=== PATIENT | male | born 1945 | race Caucasian/White ===

== ENCOUNTER 2019-05-05 20:46 | Observation (INO) | payer MEDICARE ==
[~2019-05-05] VITALS: Ht 180.3 cm; Wt 120.5 kg
[~2019-05-05 20:46] MED LIST: ASPIRIN81 MG PO; BAYER CHEWABLE81 MG PO; CARAFATE1 G/10 ML PO; CRESTOR20 MG PO; DIOVAN HCT 320/1 TA2 PO; FARXIGA10 MG PO; FERROUS SULFAT325 MG PO; FISH OIL 1,0001 CA1 PO; FISH OIL 500 MG1 CAP PO; FUROSEMIDE10 MG/M1 IV; GLUCOPHAGE500 MG PO; GUAIFENESI100 MG/5 M NG; K-DUR20 MEQ PO; LEXAPRO10 MG PO; LOVENOX30 MG/0.3 SC; METOPROLOL TAR100 M1 PO; MILK THISTLE140 MG PO; MULTIPLE VITAMI1 TA1 PO; NIASPAN500 MG PO; NITRO-DUR0.2 MG TD; NITROSTAT0.4 MG SL; NORVASC5 MG PO; PEPCID20 MG PO; PLAVIX75 MG PO; PRAVACHOL40 MG PO; PREVACID30 MG PO; PROTONIX40 MG PO; TOPROL XL100 MG PO; XOPENEX 0.0.63 MG/3 UPD; XOPENEX 1.1.25 MG/3 UPD
[2019-05-05 21:16] LABS: BASOPHILS 0.3 % (0-2); EOSINOPHILS 0.4 % (0-7); HEMATOCRIT 41.7 % (42.0-54.0); HEMOGLOBIN 14.4 g/dL (13.5-17.5); IMMATURE GRANULOCYTES 0.4 % (0-5); LYMPHOCYTES 15.5 % (15-50); MCHC 34.5 g/dL (31.0-37.0); MCV 89.9 fL (80.0-100.0); MEAN PLATELET VOLUME 9.5 fL (7.4-10.4); MONOCYTES 5.2 % (2-11); NEUTROPHILS 78.2 % (40-80); PLATELET COUNT 194 10x3/uL (130-400); RBC 4.64 10x6/uL (4.20-6.10); RDW 12.9 % (11.5-14.5); WBC 13.8 10x3/uL (4.8-10.8)
[2019-05-05 21:32] LABS: CALC OSMOLALITY 278 mosm/kg (275-300); CARBON DIOXIDE 23.1 mmol/L (21.0-32.0); CHLORIDE - SERUM 100 mmol/L (98-107); GLUCOSE 177 mg/dL (74-106); POTASSIUM - SERUM 3.3 mmol/L (3.5-5.1); SODIUM 136 mmol/L (136-145); UREA NITROGEN 20 mg/dL (7-18); eGFR NON AFRICAN AMERICAN 78 mL/min (90-120)
[2019-05-05 21:38] LABS: ALBUMIN 3.4 g/dL (3.4-5.0); ALKALINE PHOSPHATASE 71 U/L (30-120); ALT (SGPT) 36 U/L (10-68); BILIRUBIN - TOTAL 0.46 mg/dL (0.2-1.3); PROTEIN - SERUM 7.7 g/dL (6.4-8.2)
[2019-05-05 23:08] LABS: GLUCOSE NEGATIVE (NEGATIVE); KETONE SMALL mg/dL (NEGATIVE); NITRITE NEGATIVE (NEGATIVE)
[2019-05-05 23:09] LABS: BILIRUBIN NEGATIVE (NEGATIVE); UROBILINOGEN NORMAL (NORMAL)
--- NOTE | 2019-05-05 23:42 | NUR ---
PT RETURNED FROM CT AT THIS TIME. PER [place] CT PT IV INFILTRATED. PT HAS RED SWOLLEN AREA NOTED TO RIGHT WRIST. IV DC/ CATH INTACT DRESSING APPLIED. WILL ATTEMPT IV RESITE.UNABLE TO PERFORM CT.
--- NOTE | 2019-05-05 23:42 | NUR ---
ICE APPLIED TO RIGTH WRIST. WRIST ELEVATED.
--- NOTE | 2019-05-06 | NUR ---
PT ICE REMOVED FROM RIGHT WRIST.
--- NOTE | 2019-05-06 01:00 | NUR ---
ICE APPLIED TO RIGHT WRIST. EXTREMITY ELEVATED.
--- NOTE | 2019-05-06 04:00 | NUR ---
PT ARRIVED TO THE FLOOR. ALERT AND ORIENTED. NO SIGNS OF DISTRESS. BREATHING EVEN AND UNLABORED. IV SITE RT FA DRESSING CLEAN DRY AND INTACT. NO SIGNS OF INFECTION OR INFULTRATION. SKIN CLEAN DRY AND INTACT. LUNG SOUNDS CLEAR. BOWEL SOUNDS ACTIVE. ABD DISTENDED. TENDERNESS TO PALPATION. WILL CONTINUE PLAN OF CARE. CALL LIGHT IN REACH. BED LOWERED AND LOCKED. BED RAILS UPX2.
[2019-05-06] MEDS ORDERED: FISH OIL 1,0001 CA1 PO (04:11)
[2019-05-06] MEDS ORDERED: BUMETANIDE0.5 MG PO (04:12)
[2019-05-06 04:42] VITALS: BP 162/85; BMI 37.0
[2019-05-06 07:31] LABS: BASOPHILS 0.2 % (0-2); EOSINOPHILS 0.3 % (0-7); HEMATOCRIT 39.1 % (42.0-54.0); HEMOGLOBIN 13.6 g/dL (13.5-17.5); IMMATURE GRANULOCYTES 0.3 % (0-5); LYMPHOCYTES 16.9 % (15-50); MCH 31.1 pg (26.0-34.0); MCHC 34.8 g/dL (31.0-37.0); MCV 89.3 fL (80.0-100.0); MEAN PLATELET VOLUME 9.6 fL (7.4-10.4); MONOCYTES 8.4 % (2-11); NEUTROPHILS 73.9 % (40-80); PLATELET COUNT 169 10x3/uL (130-400); RBC 4.38 10x6/uL (4.20-6.10); WBC 13.1 10x3/uL (4.8-10.8)
[2019-05-06 07:41] LABS: INR 0.99 (0.85-1.17); PROTIME 13.1 SECONDS (11.6-15.0)
--- NOTE | 2019-05-06 08:00 | NUR ---
ALERT AND ORIENTED X3. IVF INFUSING TO RT. F/A W/O ANY S/S OF INFECTION/INFILTRATION WITH CYLINDER DIE MACHINE HELPER MS AT PRESCRIBED RATE. ABDOMEN DISTENDED WITH TENDERNESS NOTED TO UMBILICAL AREA ON PALPATION WITH BOWEL SOUNDS NOTED X4. DENIES ANY PAIN AT THIS TIME.ENCOURAGED TO USE CALL LIGHT FOR ASSSIT.
[2019-05-06 08:15] LABS: ALBUMIN 3.2 g/dL (3.4-5.0); ALKALINE PHOSPHATASE 71 U/L (30-120); ALT (SGPT) 37 U/L (10-68); BILIRUBIN - TOTAL 0.61 mg/dL (0.2-1.3); CALC OSMOLALITY 279 mosm/kg (275-300); CALCIUM 8.1 mg/dL (8.5-10.1); CHLORIDE - SERUM 103 mmol/L (98-107); GLUCOSE 141 mg/dL (74-106); MAGNESIUM - SERUM 1.9 mg/dL (1.8-2.4); PHOSPHOROUS 3.1 mg/dL (2.5-4.9); PROTEIN - SERUM 7.1 g/dL (6.4-8.2); SODIUM 138 mmol/L (136-145); UREA NITROGEN 18 mg/dL (7-18); eGFR NON AFRICAN AMERICAN 78 mL/min (90-120)
[2019-05-06 08:22] LABS: POTASSIUM - SERUM 4.4 mmol/L (3.5-5.1)
[2019-05-06 08:57] VITALS: BP 116/56
[2019-05-06 10:58] LABS: BILIRUBIN NEGATIVE (NEGATIVE); GLUCOSE NEGATIVE (NEGATIVE); KETONE SMALL mg/dL (NEGATIVE); NITRITE NEGATIVE (NEGATIVE); SPECIFIC GRAVITY 1.015 (1.005-1.020); UROBILINOGEN NORMAL (NORMAL)
[2019-05-06 10:59] LABS: BACTERIA FEW /hpf (NEGATIVE); EPITHELIAL CELLS RARE /hpf (0-5); RED CELLS - URINE RARE /hpf (0-5); WHITE CELLS - URINE NSEEN /hpf (NEGATIVE)
[2019-05-06 12:48] VITALS: BP 138/74
[2019-05-06 12:58] VITALS: Ht 180.3 cm; Wt 120.5 kg
[2019-05-06 20:00] VITALS: BP 175/90
[2019-05-07] VITALS: BP 131/76
--- NOTE | 2019-05-07 02:19 | NUR ---
PT RESTING IN BED. EYES CLOSED. NO SIGNS OF DISTRESS. BREATHING EVEN AND UNLABORED. IV SITE RT FA DRESSING CLEAN DRY AND INTACT. NO SIGNS OF INFECITON OR INFULTRATION. LUNG SOUNDS CLEAR. BOWEL SOUNDS ACTIVE. ABD DISTENDED. TENDER TO PALPATION. NO LOWER LEG SWELLING PRESENT. WILL CONTINUE PLAN OF CARE. CALL LIGHT IN REACH. BED LOWERED AND LOCKED. BED RAILS UPX2.
[2019-05-07 04:00] VITALS: BP 118/64
--- NOTE | 2019-05-07 05:23 | NUR ---
I have reviewed this patient and I concur with the Shift Assessment completed by the Licensed Practical Nurse today this shift.
[2019-05-07 08:08] VITALS: BP 116/62
--- NOTE | 2019-05-07 09:00 | NUR ---
ALERT AND ORIENTED X4. ABDOMEN DISTENDED WITH BOWEL SOUNDS NOTED X4. DENIES ANY PAIN OR DISCOMFORT AT THIS TIME. UP AMBULATING IN HALLWAY 1000FT W/O ASSSIT. TOLERATING DIET WELL AND STATES HAD A NORMAL BOWEL MOVEMENT YESTERDAY. IV TO RT. F/A W/O ANY S/S OF INFECTION/INFILTRATION.
[2019-05-07] MEDS ORDERED: MIRALAX17 GM PO (12:27)
[2019-05-07 12:43] VITALS: BP 148/70
--- NOTE | 2019-05-07 13:33 | NUR ---
IV DISCONTINUED AND VERBALIZED UNDERSTANDING OF DISCHARGE INSTRUCTIONS. STABLE AT TIME OF DEPARTURE.
== END 2019-05-07 13:36 | disposition home or self-care (01) ==
LOC: D.ER 20:46 → D.MS 05-06 02:49 → OBSVTIME 05-06 02:49 → D.MS 05-07 13:36
PROVIDERS: Emergency Medicine; ADMIT Internal Medicine Nephrology; ATTEND Internal Medicine Nephrology
DX: K42.9 Umbilical hernia without obstruction or gangrene (principal); E87.6 Hypokalemia; I25.10 Atherosclerotic heart disease of native coronary artery without angina pectoris; E66.9 Obesity, unspecified; Z68.37 Body mass index [BMI] 37.0-37.9, adult; E11.9 Type 2 diabetes mellitus without complications; I10 Essential (primary) hypertension

== ENCOUNTER 2020-07-19 11:43 | Observation (INO) | payer MEDICARE ==
[~2020-07-19] VITALS: Ht 180.3 cm; Wt 129.5 kg
--- NOTE | ~2020-07-19 | HEMODYNAMI ---
PATIENT:FAMILIA HYDE MEDICAL RECORD: [id number] : 49 LOCATION:[facility] ADMISSION DATE: 07/19/20 Generatedon:116:52 Patient name: FAMILIA HYDE Patient #: [id number] SSN: [id number] : 1945 Date of study: 07/19/2020 Page: Of Hemodynamic Procedure Report Patient Data Patient Demographics Procedure consent was obtained First Name: FAMILIA Gender: Male Last Name: BARRETT : 1945 [facility] Initial: C Age: 75 year(s) Patient #: [id number] Race: SSN: [id number] Additional ID: [id number] Contact details Address: [address] State: [place] City: [place] Zip code: [address] Past Medical History Allergies: No known allergies Admission Admission Data Admission Date: 07/19/2020 Admission Time: 11:43 Arrival Date: 07/19/2020 Arrival Time: 0:00 Admit Source: Other Insurance Payor: Medicare [facility] #: [id number] Height (in.): 71 BSA: 2.34 (m2) Height (cm.): 180.34 BMI: 35.56 (kg/m2) Weight (lbs.): 255 Weight (kg.): 115.67 Lab Results Lab Result Date: 07/19/2020 Lab Result Time: 0:00 Biochemistry Name Units Result Min Max BUN mg/dl 29 --(----)-* 7 18 Creatinine mg/dl 1.4 --(----)*- 0.6 1.3 eGFR ml/min 53 *-(----)-- 90 120 NONAFRICAN CBC Name Units Result Min Max Hematocrit % 41 -*(----)-- 42 54 Hemoglobin g/dl 13.6 --(*---)-- 13.5 17.5 Procedure Procedure Types Cath Procedure Diagnostic Procedure PPM/ICD Permanent Pacer Lead Repos. Sedation Charges Moderate Sedation 10-24 minutes Procedure Description Procedure Date Procedure Date: 07/19/2020 Procedure Start Time: 16:22 Procedure Staff Name Function Douglas Byrd MD Performing Physician Leo Vasquez RN Nurse Bonnie Hernandez RT Monitor Lorena Noble RT Scrub Procedure Data Cath Procedure Fluoroscopy Diagnostic fluoroscopy Total fluoroscopy Time: 1.3 time: 1.3 min min Diagnostic fluoroscopy Total fluoroscopy dose: dose: 112.13 mGy 112.13 mGy Estimated blood loss: 5 ml Procedure Complications No complications Procedure Medications Medication Administration Route Dosage Oxygen etCO2 Nasal cannula 4 l/min Lidocaine 1% added to field 20 Ancef Irrigation Topical 1 g (1gm/500ml NS) 0.9% NaCl I.V. Ancef (1Gm/50ml NS) I.V.P.B 1 g Versed I.V. 1 mg Fentanyl I.V. 50 mcg Versed I.V. 1 mg Fentanyl I.V. 50 mcg Versed I.V. 0.5 mg Fentanyl I.V. 25 mcg Hemodynamics Rest BSA: 2.34 (m2) HGB: 13.6 (g/dl) O2 Consumption: Estimated: 231.28 (ml/min) O2 Co nsumption indexed: Estimated:98.84 (ml/min/m) Heart Rate: 27 (bpm) Snapshots Pre Cath Intra NCS Post Cath Vital Signs Time Heart Resp SPO2 NIBP (mmHg) Rhythm Pain Sedation Rate (ipm) (%) Status Level (bpm) 15:45:03 56 11 91 149/93(125) A-Fib (Missing) 10(A) 15:50:14 57 19 91 158/78(93) A-Fib (Missing) 10(A) 15:54:32 54 19 91 141/92(109) A-Fib (Missing) 10(A) 15:58:52 52 20 91 126/66(107) A-Fib (Missing) 10(A) 16:03:00 42 21 90 128/88(108) A-Fib (Missing) 10(A) 16:07:06 50 15 91 136/92(106) A-Fib (Missing) 10(A) 16:11:14 41 20 93 131/80(103) A-Fib (Missing) 10(A) 16:15:30 47 23 91 145/65(119) A-Fib (Missing) 10(A) 16:20:31 51 22 91 152/79(120) A-Fib (Missing) 10(A) 16:24:53 42 19 90 147/71(131) A-Fib (Missing) 10(A) 16:29:11 45 21 90 151/79(110) A-Fib (Missing) 9(A) 16:33:29 88 24 90 137/84(119) A-Fib (Missing) 9(A) 16:37:39 62 19 93 145/89(119) A-Fib (Missing) 9(A) 16:41:53 73 21 91 149/87(122) Paced (Missing) 10(A) 16:46:09 91 22 95 153/88(108) Paced (Missing) 10(A) 16:50:09 No Cuff Paced (Missing) 10(A) Medications Time Medication Route Dose Verified Delivered Reason Notes Effectiv eness by by 15:44:11 Oxygen etCO2 4 Douglas Buffie used for [facility]al l[facility] 15:44:27 Lidocaine added 20ml Douglas Douglas for local 1% to vial [facility] anesthetic field x2 MD ARAUJO 15:44:39 Ancef Topical 1 g Douglas Douglas used for Irrigation [facility] procedure (1gm/500ml MD ARAUJO NS) 15:44:49 0.9% NaCl I.V. kvo Douglas Buffie Per ml/hr Carson Vasquez RN physician 15:48:14 Ancef I.V.P.B 1 g Douglas Buffie used for (1Gm/50ml Carson Vasquez call center coordinator NS) 16:21:23 Versed I.V. 1 mg Douglas Buffie for Carson Vasquez RN sedation 16:21:34 Fentanyl I.V. 50 Douglas Buffie for mcg Carson Vasquez RN sedation 16:24:00 Versed I.V. 1 mg Douglas Buffie for Carson Vasquez RN sedation 16:24:04 Fentanyl I.V. 50 Douglas Buffie for mcg Carson Vasquez RN sedation 16:31:34 Versed I.V. 0.5 Douglas Buffie for mg Carson Vasquez RN sedation 16:31:39 Fentanyl I.V. 25 Douglas Buffie for mcg Carson Vasquez RN sedation Procedure Log Time Note 15:32:16 Leo Vasquez RN sent for patient. Start room use. 15:32:30 Informed consent obtained and on chart 15:32:52 Admit Source: Other 15:32:58 Patient Height : 71 inches 15:32:58 Patient Weight : 255 lbs 15:33:14 ACC Patient presents with Stable Angina CCS Anginal Class 2--Slight limitation of ordinary activity. 15:33:19 Procedure Status PPM/ Gen Change/ Lead Revision/ Temp. 15:33:21 Time tracking: Regular hours (M-F 7:00 - 5:00) 15:33:26 Plan of Care:Hemodynamics will remain stable., Cardiac rhythm will remain stable., Comfort level will be maintained., Respiratory function will remain adequate., Patient/ family verbilizes understanding of procedure., Procedure tolerated without complication., Recovers from procedure without complications.. 15:33:35 H&P Date Dictated: 07/12/2020 Within 30 days and on chart.. 15:33:36 Pre-procedure instructions explained to patient. 15:33:37 Pre-op teaching completed and patient verbalized understanding. 15:33:39 Family in waiting room. 15:33:42 Patient NPO since Midnight. 15:33:47 Patient allergic to No known allergies 15:33:52 Alarms reviewed by R. N. 15:33:53 Sharps counted by scrub and verified by R.N. 15:33:55 Lab results completed and on chart. 15:33:59 Stress Test: no; N/A ? 15:36:37 Patient received from Pre/Post Procedure Room to [facility] 3 Alert and oriented. Tansferred to table in Supine position. 15:36:43 Warm blankets applied, and jose maria hugger turned on for patient comfort. 15:36:43 Correct patient and procedure confirmed by team. 15:36:44 ECG and BP/O2 sat monitors applied to patient. 15:36:50 Is the patient allergic to Iodine/contrast media? No. 15:36:52 Was the patient premedicated? No 15:36:53 Is patient on blood thinner?No 15:37:01 ----Pre-sedation anethsthesia assessment.---- 15:37:04 Previous problem with sedation/anesthesia? No ? 15:37:05 Snore? Yes 15:37:07 Sleep apnea? Unknown 15:37:08 Deviated septum? No 15:37:16 Opens mouth fully? Yes 15:37:17 Sticks out tongue? Yes 15:37:19 Airway obstruction? No ? 15:37:21 Dentures? No ? 15:37:43 Left chest area was prepped with chlora-prep and draped in sterile fashion 15:37:52 Patient pain scale 0/10 ?. 15:37:56 IV patent on arrival in left antecubital with 0.9% NaCl at KVO. 15:38:05 Use device set CLARIBEL PPM 15:38:11 Full Disclosure recording started 15:43:49 Vital chart was started 15:44:11 Oxygen 4 l/min etCO2 Nasal cannula was administered by Leo Vasquez RN; used for procedure; Verbal order read back and verified. 15:44:27 Lidocaine 1% 20ml vial x2 added to field was administered by Douglas Byrd MD; for local anesthetic; Verbal order read back and verified. 15:44:39 Ancef Irrigation (1gm/500ml NS) 1 g Topical was administered by Douglas Byrd MD; used for procedure; Verbal order read back and verified. 15:44:49 0.9% NaCl kvo ml/hr I.V. was administered by Leo Vasquez RN; Per physician; Verbal order read back and verified. 15:47:06 Patient diabetic? No. 15:47:29 Baseline sample Acquired. 15:48:14 Ancef (1Gm/50ml NS) 1 g I.V.P.B was administered by Leo Vasquez RN; used for procedure; Verbal order read back and verified. 15:57:42 Baseline sample Acquired. 15:58:30 [employer] outbound telemarketing representative Aaron Boss present for procedure. 16:20:45 Pre sharps counted by scrub and verified by RN: Sutures: 7; Sponges: 5; Stick needles: 2; Skin needles: 2; Blade: 1; Cautery: 1 16:20:48 Grounding pad site Left thigh. 16:20:52 Grounding pad site free from injury. 16:20:57 Physician arrived 16:20:58 --------ALL STOP TIME OUT------ 16:20:58 Final Timeout: patient, procedure, and site verified with staff and physician. All members of the team are in agreement. 16:21:03 Left chest site verified by team. 16:21:06 Fire Safety Assessment: A--An alcohol-based skin anteseptic being used preoperatively., C--Open oxygen or nitrous oxide is being used., D--An ESU, laser, or fiber-optic light is being used. 16:21:10 Physical assessment completed. ASA score P 2 - A patient with mild systemic disease as per Douglas Byrd MD. 16:21:15 Sedation plan: IV Moderate Sedation Medication:Versed, Fentanyl 16::23 Versed 1 mg I.V. was administered by Leo Vasquez RN; for sedation; Verbal order read back and verified. 16::34 Fentanyl 50 mcg I.V. was administered by Leo Vasquez RN; for sedation; Verbal order read back and verified. 16:22:37 Lidocaine 1% was administered to left subclavicular area by Douglas Byrd MD . 16:24:00 Versed 1 mg I.V. was administered by Leo Vasquez RN; for sedation; Verbal order read back and verified. 16:24:04 Fentanyl 50 mcg I.V. was administered by Leo Vasquez RN; for sedation; Verbal order read back and verified. 16:24:19 Incision made to left subclavicular area. 16:24:21 Generator pocket made/opened. 16:26:00 Ventricular lead repositioned. 16:31:21 2-0 Ticron Multipack ([id number]) opened to sterile field. 16:31:21 3-0 Vicryl Single Pack [id number] opened to sterile field. 16:31:22 5-0 Monocryl PS2 [id number] opened to sterile field. 16:31:22 Cautery Tip Cardroom Hand opened to sterile field. 16:31:23 Cautery Pushbutton Pencil opened to sterile field. 16:31:24 Mepilex Dressing ([id number]) opened to sterile field. 16:31:34 Versed 0.5 mg I.V. was administered by Leo Vasquez RN; for sedation; Verbal order read back and verified. 16::39 Fentanyl 25 mcg I.V. was administered by Leo Vasquez RN; for sedation; Verbal order read back and verified. 16:31:48 Ventricular lead attachment was completed with 2-0 ticron. 16:32:10 PPM Dual was attached to lead(s) and inserted into pocket. 16:34:14 Generator was sutured in place with 2-0 ticron. 16:34:19 Device pocket was irrigated with Ancef. 16:37:49 5-0 Monocryl PS2 [id number] opened to sterile field. 16:38:02 Subcutaneous closure was completed with 3-0 vicryl plus. 16:40:11 Skin closure was completed with 5-0 monocryl. 16:40:16 Lt Chest incision was dressed with Mepilex dressing. 16:40:36 Parameters-- Generator: Mode: DDDR. Lower Rate: 60bpm. Upper Rate: 120bpm. 16:41:08 Procedure ended.(Physican Out) 16:49:20 Fluoroscopy time 01.30 minutes. 16:49:24 Fluoroscopy dose: 112.13 mGy 16:49:24 Flurop Dose total: 112.13 16:49:30 Dose Area Product 1143.71 mGy/cm. 16:49:32 Sharps counted by scrub and verified by R.N. 16:49:34 Insertion/operative site no bleeding no hematoma. 16:49:40 Post procedure rhythm: paced 16:49:44 Estimated blood loss: 5 ml 16:49:46 Post procedure instruction explained to patient.Patient verbalizes understanding. 16:49:47 Patient needs reinforcement of post procedure teaching. 16:50:25 Procedure type changed to Cath procedure, Diagnostic procedure, PPM/ICD, Permanent Pacer Lead Repos., Sedation Charges, Moderate Sedation 10-24 minutes 16:50:26 Procedure and supply charges have been captured, reviewed, submitted and are correct. 16:50:33 Procedure Complication : No complications 16:50:36 Vital chart was stopped 16:50:38 Operative report dictated upon procedure completion. 16:50:39 See physician's report for complete and final results. 16:50:41 Report given to [facility]. 16:50:44 Patient transfered to [facility] with Stretcher. 16:50:53 End room use (Document Last) 16:51:24 End room use (Document Last) 16:51:44 End room use (Document Last) Device Usage Item Name Manufacture Quantity Catalog Hospital Part Current Minimal Lot# / Number Charge Number Stock Stock Serial# Code 2-0 Ticron Ethicon 3 [id number] 5 Multipack ([id number]) 3-0 Vicryl Ethicon 1 [id number] [id number] 5 Single Pack [id number] 5-0 Monocryl Ethicon 2 [id number] 393175 [id number] 5 PS2 Y495G Cautery Tip Microtek 1 [id number] 5 [employer] Cautery Microtek 1 [id number] 5 [employer] Pencil Mepilex Cardinal 1 [id number] 5 [facility] ([id number]) Signature Audit [place] Stage Time Signature Unsigned Intra-Procedure 07/19/2020 Bonnie Hernandez 4:51:24 PM RT(R) Intra-Procedure 07/19/2020 Leo Vasquez RN 4:51:44 PM Intra-Procedure 07/19/2020 Douglas Ruggiero 4:52:03 PM Bhaskar ARAUJO [facility] [address] [place] [address]
--- NOTE | ~2020-07-19 | HEMODYNAMI ---
PATIENT:FAMILIA HYDE MEDICAL RECORD: [id number] : 49 LOCATION:[place] ADMISSION DATE: 07/19/20 Generatedon:115:01 Patient name: FAMILIA HYDE Patient #: [id number] SSN: [id number] : 1945 Date of study: 07/19/2020 Page: Of Hemodynamic Procedure Report Patient Data Patient Demographics Procedure consent was obtained First Name: FAMILIA Gender: Male Last Name: BARRETT : 1945 [facility] Initial: C Age: 75 year(s) Patient #: [id number] Race: SSN: [id number] Additional ID: [id number] Contact details Address: [address] State: [place] City: [place] Zip code: [address] Past Medical History Allergies: No known allergies Admission Admission Data Admission Date: 07/19/2020 Admission Time: 11:43 Arrival Date: 07/19/2020 Arrival Time: 0:00 Admit Source: Other Insurance Payor: Medicare [facility] #: [id number] Height (in.): 71 BSA: 2.34 (m2) Height (cm.): 180.34 BMI: 35.56 (kg/m2) Weight (lbs.): 255 Weight (kg.): 115.67 Lab Results Lab Result Date: 07/19/2020 Lab Result Time: 0:00 Biochemistry Name Units Result Min Max BUN mg/dl 29 --(----)-* 7 18 Creatinine mg/dl 1.4 --(----)*- 0.6 1.3 eGFR ml/min 53 *-(----)-- 90 120 NONAFRICAN CBC Name Units Result Min Max Hematocrit % 41 -*(----)-- 42 54 Hemoglobin g/dl 13.6 --(*---)-- 13.5 17.5 Procedure Procedure Types Cath Procedure Diagnostic Procedure PPM/ICD PPM Dual Implant Sedation Charges Moderate Sedation 40-54 minutes Procedure Description Procedure Date Procedure Date: 07/19/2020 Procedure Start Time: 14:28 Procedure End Time: 15:00 Procedure Staff Name Function Douglas Byrd MD Performing Physician Chuck Gomez MD Assisting physician Lorena Noble RT Monitor Leo Vasquez RN Nurse Jason Ayala RN Nurse Bonnie Hernandez RT Scrub Indication Atrial flutter Procedure Data Cath Procedure Fluoroscopy Diagnostic fluoroscopy Total fluoroscopy Time: 1.4 time: 1.4 min min Diagnostic fluoroscopy Total fluoroscopy dose: 240 dose: 240 mGy mGy Contrast Material Contrast Material Type Amount (ml) Isovue 370 0 Estimated blood loss: 10 ml Procedure Complications No complications Procedure Medications Medication Administration Route Dosage Oxygen etCO2 Nasal cannula 2 l/min Lidocaine 1% added to field 20 Ancef (1Gm/50ml NS) I.V.P.B 1 g Ancef Irrigation Topical 1 g (1gm/500ml NS) 0.9% NaCl I.V. 100 ml/hr Versed I.V. 2 mg Fentanyl I.V. 100 mcg Versed I.V. 1 mg Versed I.V. 1 mg Fentanyl I.V. 100 mcg Versed I.V. 2 mg Fentanyl I.V. 50 mcg Fentanyl I.V. 50 mcg Zofran I.V. 4 mg Hemodynamics Rest BSA: 2.34 (m2) HGB: 13.6 (g/dl) O2 Consumption: Estimated: 256.43 (ml/min) O2 Co nsumption indexed: Estimated:109.59 (ml/min/m) Heart Rate: 55 (bpm) Snapshots Pre Cath Intra NCS Post Cath Vital Signs Time Heart Resp SPO2 etCO2 NIBP (mmHg) Rhythm Pain Sedation Rate (ipm) (%) (mmHg) Status Level (bpm) 14:08:08 54 20 98 25.4 204/98(174) A-Fib 0 (11) 10(A) , No pain 14:12:40 52 20 95 17.2 212/92(167) A-Fib 0 (11) 10(A) , No pain 14:17:07 56 18 95 19.4 196/89(154) A-Fib 0 (11) 10(A) , No pain 14:21:33 51 18 94 26.1 178/88(152) A-Fib 0 (11) 10(A) , No pain 14:25:59 46 24 93 22.4 181/76(138) A-Fib 0 (11) 10(A) , No pain 14:30:19 54 15 94 26.9 186/96(148) A-Fib 0 (11) 10(A) , No pain 14:34:52 56 16 93 24.6 179/91(138) A-Fib 0 (11) 10(A) , No pain 14:39:20 54 18 92 30.6 175/86(134) A-Fib 0 (11) 10(A) , No pain 14:43:42 46 18 90 29.8 170/71(120) A-Fib 0 (11) 10(A) , No pain 14:48:11 45 16 94 29.8 163/79(127) A-Fib 0 (11) 10(A) , No pain 15:01:05 59 16 92 26.1 172/91(147) A-Fib 0 (11) 10(A) , No pain Medications Time Medication Route Dose Verified Delivered Reason Notes Effecti veness by by 14:06:03 Oxygen etCO2 2 Douglas Jason used for Nasal l/min St Bhaskar Ayala passenger barge master cannula MD 14:06:18 Lidocaine added 20ml Confucianism Confucianism for local 1% to vial Claribel Gomez MD anesthetic field x 2 14:06:28 Ancef I.V.P.B 1 g Confucianism Jason used for (1Gm/50ml Claribel Ayala passenger barge master NS) 14:06:35 Ancef Topical 1 g Confucianism Jason used for Irrigation Claribel Ayala passenger barge master (1gm/500ml NS) 14:06:53 0.9% NaCl I.V. 100 Confucianism Jason used for ml/hr Claribel Ayala passenger barge master 14:17:16 Versed I.V. 2 mg Confucianism Jason for Claribel Ayala RN sedation 14:17:23 Fentanyl I.V. 100 Confucianism Jason for mcg Claribel Ayala RN sedation 14:23:49 Versed I.V. 1 mg Confucianism Jason for Claribel Ayala RN sedation 14:26:02 Versed I.V. 1 mg Confucianism Jason for Claribel Ayala RN sedation 14:36:24 Fentanyl I.V. 100 Chuck Gomez for mcg Claribel Ayala RN sedation 14:38:27 Versed I.V. 2 mg Chuck Gomez for Claribel Ayala RN sedation 14:40:50 Fentanyl I.V. 50 Chuck Johnsony for mcg Claribel Ayala RN sedation 14:43:53 Fentanyl I.V. 50 Chuck Gomez for mcg Claribel Ayala RN sedation 14:58:52 Zofran I.V. 4 mg Chuck Gomez for nausea Claribel Ayala RN Procedure Log Time Note 13:52:40 Informed consent obtained and on chart 13:53:24 Leo Vasquez RN sent for patient. Start room use. 13:53:45 Diagnostic Cath Status : Elective 13:54:15 Arrival Date: 07/19/2020 12:00:00 AM 13:54:16 Admit Source: Other 13:54:19 Insurance Payor : Medicare 13:55:14 Patient Height : 71 inches 13:55:18 Patient Weight : 255 lbs 13:56:02 Lab Result : eGFR NONAFRICAN 53 ml/min 13:56:02 Lab Result : BUN 29 mg/dl 13:56:02 Lab Result : Creatinine 1.4 mg/dl 13:56:02 Lab Result : Hemoglobin 13.6 g/dl 13:56:02 Lab Result : Hematocrit 41 % 13:58:05 Indication : Atrial flutter 13:58:16 ACC Patient presents with Stable Angina CCS Anginal Class 2--Slight limitation of ordinary activity. 13:58:20 Procedure Status PPM/ Gen Change/ Lead Revision/ Temp. 13:58:32 Time tracking: Regular hours (M-F 7:00 - 5:00) 13:58:38 Plan of Care:Hemodynamics will remain stable., Cardiac rhythm will remain stable., Comfort level will be maintained., Respiratory function will remain adequate., Patient/ family verbilizes understanding of procedure., Procedure tolerated without complication., Recovers from procedure without complications.. 13:58:47 H&P Date Dictated: 07/12/2020 Within 30 days and on chart.. 13:58:52 Patient received from Pre/Post Procedure Room to [facility] 2 Alert and oriented. Tansferred to table in Supine position. 13:58:54 Warm blankets applied, and jose maria hugger turned on for patient comfort. 13:58:55 Correct patient and procedure confirmed by team. 13:58:55 ECG and BP/O2 sat monitors applied to patient. 13:58:59 Full Disclosure recording started 13:59:02 Patient diabetic? Yes. 13:59:04 If diabetic: On Metformin? Yes 13:59:08 If on Metformin: Last Dose? 07/19/2020 13:59:11 Family in waiting room. 13:59:13 Patient NPO since Midnight. 13:59:20 Patient allergic to No known allergies 13:59:23 Is the patient allergic to Iodine/contrast media? No. 13:59:24 Was the patient premedicated? Yes 13:59:26 Is patient on blood thinner?No 13:59:30 Alarms reviewed by R. N. 13:59:31 Sharps counted by scrub and verified by R.N. 13:59:33 Lab results completed and on chart. 13:59:37 Stress Test: no; N/A ? 14:05:50 Vital chart was started 14:06:03 Oxygen 2 l/min etCO2 Nasal cannula was administered by Jason Ayala RN; used for procedure; Verbal order read back and verified. 14:06:18 Lidocaine 1% 20ml vial x 2 added to field was administered by Chuck Gomez MD; for local anesthetic; Verbal order read back and verified. 14:06:28 Ancef (1Gm/50ml NS) 1 g I.V.P.B was administered by Jason Ayala RN; used for procedure; Verbal order read back and verified. 14:06:35 Ancef Irrigation (1gm/500ml NS) 1 g Topical was administered by Jason Ayala RN; used for procedure; Verbal order read back and verified. 14:06:53 0.9% NaCl 100 ml/hr I.V. was administered by Jason Ayala RN; used for procedure; Verbal order read back and verified. 14:08:13 Baseline sample Acquired. 14:08:25 Rhythm: atrial flutter 14:08:29 ----Pre-sedation anethsthesia assessment.---- 14:08:33 Previous problem with sedation/anesthesia? No ? 14:08:33 Snore? Yes 14:08:35 Sleep apnea? Unknown 14:08:37 Deviated septum? No 14:08:40 Opens mouth fully? Yes 14:08:45 Sticks out tongue? Yes 14:08:47 Airway obstruction? No ? 14:08:50 Dentures? No ? 14:08:57 Patient pain scale 0/10 ?. 14:09:01 IV patent on arrival in left antecubital with 0.9% NaCl at [facility]. 14:09:08 Left chest area was prepped with chlora-prep and draped in sterile fashion 14:10:01 Use device set CLARIBEL PPM 14:10:03 2-0 Ticron Multipack ([id number]) opened to sterile field. 14:10:04 3-0 Vicryl Single Pack [id number] opened to sterile field. 14:10:04 5-0 Monocryl PS2 [id number] opened to sterile field. 14:10:05 Cautery Tip Systems Operator opened to sterile field. 14:10:06 Cautery Pushbutton Pencil opened to sterile field. 14:10:09 Mepilex Dressing ([id number]) opened to sterile field. 14:10:12 Immobilizer Extra Large opened to sterile field. 14:16:25 --------ALL STOP TIME OUT------ 14:16:27 Final Timeout: patient, procedure, and site verified with staff and physician. All members of the team are in agreement. 14:16:30 Left chest site verified by team. 14:16:33 Fire Safety Assessment: A--An alcohol-based skin anteseptic being used preoperatively., C--Open oxygen or nitrous oxide is being used., D--An ESU, laser, or fiber-optic light is being used. 14:16:36 Physical assessment completed. ASA score P 2 - A patient with mild systemic disease as per Douglas Byrd MD. 14:16:38 3a) 45-59 Moderately reduced kidney function. 14:16:40 Maximum allowable contrast dose (3.7 X eGFR X 0.75)157 ml. 14:16:43 Sedation plan: IV Moderate Sedation Medication:Versed, Fentanyl 14:17:16 Versed 2 mg I.V. was administered by Jason Ayala RN; for sedation; Verbal order read back and verified. 14:17:23 Fentanyl 100 mcg I.V. was administered by Jason Ayala RN; for sedation; Verbal order read back and verified. 14:23:49 Versed 1 mg I.V. was administered by Jason Ayala RN; for sedation; Verbal order read back and verified. 14:26:02 Versed 1 mg I.V. was administered by Jason Ayala RN; for sedation; Verbal order read back and verified. 14:28:00 Procedure started. 14:28:14 Medtronic passenger representative SAUNDRA BURDEN present for procedure. 14:28:24 Pre sharps counted by scrub and verified by RN: Sutures: 7; Sponges: 5; Stick needles: 2; Skin needles: 2; Blade: 1; Cautery: 1 14:28:27 Grounding pad site Left thigh. 14:28:28 Grounding pad site free from injury. 14:28:36 Lidocaine 1% was administered to left subclavicular area by Chuck Gomez MD . 14:29:36 Incision made to left subclavicular area. 14:30:18 Medtronic 4074-52 PPM Lead opened to sterile field. 14:30:19 Medtronic 4574-45 PPM Lead opened to sterile field. 14:32:18 Generator pocket made/opened. 14:36:24 Fentanyl 100 mcg I.V. was administered by Jason Ayala RN; for sedation; Verbal order read back and verified. 14:38:17 Left subclavian vein accessed with 7Fr Peel Away Sheath. 14:38:27 Versed 2 mg I.V. was administered by Jason Ayala RN; for sedation; Verbal order read back and verified. 14:38:46 Ventricular lead inserted and advanced. 14:40:50 Fentanyl 50 mcg I.V. was administered by Jason Ayala RN; for sedation; Verbal order read back and verified. 14:43:53 Fentanyl 50 mcg I.V. was administered by Jason Ayala RN; for sedation; Verbal order read back and verified. 14:44:31 Atrial lead inserted and advanced. 14:44:41 Ventricular lead positioned. 14:45:53 Ventricular lead tested. 14:46:51 Atrial lead positioned. 14:47:15 Atrial lead tested. 14:48:22 Peel-a-way sheath was split and removed. 14:48:[address] Generator [id number] opened to sterile field. 14:49:46 Ventricular lead attachment was completed with 2-0 ticron. 14:49:49 Atrial lead attachment was completed with 2-0 ticron. 14:50:36 PPM Dual was attached to lead(s) and inserted into pocket. 14:51:34 Subcutaneous closure was completed with 2-0 ticron. 14:52:23 Generator was sutured in place with 3-0 vicryl. 14:52:29 Device pocket was irrigated with Ancef. 14:52:49 Skin closure was completed with 5-0 monocryl. 14:53:34 Post sharps counted by scrub and verified by RN: Sutures: 2; Sponges: 5; Stick needles: 2; Skin needles: 2; Blade: 1; Cautery: 1 14:57:35 Lt Chest incision was dressed with Mepilex dressing. 14:57:48 Procedure ended.(Physican Out) 14:57:58 Fluoroscopy time 01.40 minutes. 14:58:02 Flurop Dose total: 240 14:58:02 Fluoroscopy dose: 240 mGy 14:58:12 Dose Area Product 95788 mGy/cm. 14:58:16 Contrast amount:Isovue 370 0ml. 14:58:18 Sharps counted by scrub and verified by R.N. 14:58:37 Post-procedure physical assessment completed. ASA score P 2 - A patient with mild systemic disease as per Douglas Byrd MD. 14:58:51 Estimated blood loss: 10 ml 14:58:52 Zofran 4 mg I.V. was administered by Jason Ayala RN; for nausea; Verbal order read back and verified. 14:59:09 Post procedure instruction explained to patient.Patient verbalizes understanding. 14:59:10 Patient needs reinforcement of post procedure teaching. 14:59:44 Procedure type changed to Cath procedure, Diagnostic procedure, PPM/ICD, PPM Dual Implant, Sedation Charges, Moderate Sedation 40-54 minutes 15:00:15 Procedure and supply charges have been captured, reviewed, submitted and are correct. 15:00:19 Procedure Complication : No complications 15:00:23 Operative report dictated upon procedure completion. 15:00:24 See physician's report for complete and final results. 15:00:28 Report given to Pre/Post Procedure Room. 15:00:31 Patient transfered to Pre/Post Procedure Room with Stretcher. 15:00:34 Procedure ended. 15:00:34 Full Disclosure recording stopped 15:00:39 End room use (Document Last) 15:01:11 End room use (Document Last) 15:01:27 End room use (Document Last) 15:01:51 Vital chart was stopped Device Usage Item Name Manufacture Quantity Catalog Hospital Part Current [facility] Lot# / Number Charge Number Stock Stock Serial# Code 2-0 Ticron Ethicon 8 [id number] 998778 58677 [id number] 5 Multipack ([id number]) 3-0 Vicryl Ethicon 1 [id number] 200769 323412 292885 5 Single Pack [id number] 5-0 Monocryl Ethicon 1 [id number] 269491 970865 5 PS2 Y495G Cautery Tip Microtek 1 [id number] 394126 918406 184301 5 Systems [employer] Cautery Microtek 1 [id number] 058159 56126 967906 5 Pushbutton [employer] Pencil Mepilex Cardinal 1 374726 983465 755646 474736 5 Dressing Health (649570) Immobilizer Cardinal 1 [id number] 761772 930777 762357 5 Extra Large Health Medtronic Medtronic 1 4074-52 484767 581713 538935 5 4074-52 PPM [id number] Lead EXP: 03/30/2022 Medtronic Medtronic 1 4574-45 090913 451826 231468 5 4574-45 PPM [id number] Lead EXP: 11/07/2021 Medtronic Medtronic 1 [id number] 075661 [id number] [id number] [address] [id number] Generator EXP: [id number] 11/20/2021 Signature Audit [place] Stage Time Signature Unsigned Intra-Procedure 07/19/2020 Lorena Noble 3:01:11 PM RT(R) Intra-Procedure 07/19/2020 Leo Vasquez RN 3:01:27 PM Intra-Procedure 07/19/2020 Douglas Ruggiero 3:01:49 PM Bhaskar ARAUJO Signatures Performing Physician : Signature : Douglas Byrd MD Date : Time : Monitor : Lorena Young Signature : RT Date : Time : Nurse : Buffie Vasquez RN Signature : Date : Time : Nurse : Jason Jamie RN Signature : Date : Time : [address] [place] [address]
[~2020-07-19 11:43] MED LIST changes: +BUMETANIDE0.5 MG PO; +MIRALAX17 GM PO
[2020-07-19] MEDS ORDERED: METFORMIN HCL500 M1 PO (12:13)
[2020-07-19] MEDS ORDERED: BUMEX2 MG PO (12:13)
[2020-07-19] MEDS ORDERED: PRAVASTATIN SOD10 MG PO (12:14)
[2020-07-19] MEDS ORDERED: ZYLOPRIM300 MG PO (12:14)
[2020-07-19] MEDS ORDERED: MAG-OXIDE400 MG PO (12:15)
[2020-07-19] MEDS ORDERED: MULTI-DAY VITAM1 TAB PO (12:16)
[2020-07-19] MEDS ORDERED: VITAMIN C500 M1 PO (12:16)
[2020-07-19 12:54] VITALS: BP 155/54
[2020-07-19 13:01] LABS: HEMOGLOBIN 13.6 g/dL (13.5-17.5); MCH 29.9 pg (26.0-34.0); MCHC 33.1 g/dL (31.0-37.0); MCV 90.3 fL (80.0-100.0); MEAN PLATELET VOLUME 8.2 fL (7.4-10.4); RBC 4.54 10x6/uL (4.20-6.10); RDW 14.1 % (11.5-14.5); WBC 11.7 10x3/uL (4.8-10.8)
[2020-07-19 13:13] LABS: ANION GAP 14.6 mmol/L (8-16); CALCIUM 9.3 mg/dL (8.5-10.1); CARBON DIOXIDE 24.3 mmol/L (21.0-32.0); CREATININE - SERUM 1.4 mg/dL (0.6-1.3); POTASSIUM - SERUM 3.9 mmol/L (3.5-5.1)
[2020-07-19 13:36] LABS: APTT 27.6 SECONDS (22.8-39.4); INR 1.07 (0.85-1.17); PROTIME 12.9 SECONDS (11.6-15.0)
--- NOTE | 2020-07-19 15:11 | NUR ---
PT ARRIVES TO ROOM 4 VIA STRETCHER S/P PACEMAKER. SEE AUTO WINDER. PT PLACED ON MONITORS AND ALARMS ON, PACEMAKER NOTED NOT CAPTURING APPROPRIATELY DR LONG NOTIFIED AND COMES TO BEDSIDE TO INTEROGATE PACEMAKER, PT TO BE TAKEN TO HOG TENDER FOR POSSIBLE LEAD REVISION AND PT TO BE ADMITTED OVER NIGHT. PT SPOUSE IS AT BEDSID AND SHE AND PT ARE AWARE OF PLAN
--- NOTE | 2020-07-19 15:30 | NUR ---
PT LEAVES THIS UNIT TO RETURN TO [facility] THEN ADMIT OVER NIGHT
[2020-07-19 17:21] VITALS: BP 146/82; Ht 180.3 cm; Wt 129.5 kg
[2020-07-19 19:16] VITALS: BP 145/81
[2020-07-19 23:43] VITALS: BP 154/76
--- NOTE | 2020-07-19 23:49 | NUR ---
REPORT RECEIVED, PT A&O, UP IN BED WATCHING TV. NO S/S OF DISTRESS OBSERVED. RR EVEN & UNLABORED ON RA. IV TO L HAND PATENT, SL, SWAB CAPS IN USE. PACED 70 ON TELE. MEDS RESTARTED, BUMEX ADMINISTERED FOR +2 PITTING EDEMA TO BILATERAL LE. L ARM IN SLING POST PERMANENT PM PLACEMENT. BED LOCKED AND LOWERED, CL IN REACH. ASSESSMENT COMPLETE. WILL CONT POC.
[2020-07-20 03:45] VITALS: BP 170/85
--- NOTE | 2020-07-20 06:50 | NUR ---
BEDSIDE REPORT RECIEVED PATIENT AWAKE ALERT TELE PACED AT 70 LEFT HAND SALINE LOCKED. LEFT ARM SLING. RESP EVEN AND UNLABORED ON ROOM AR.
--- NOTE | 2020-07-20 07:58 | NUR ---
PATIENT AWAKE AND ALERT. NO CURRENT COMPLAINTS OF PAIN OR DISTRESS. RESP EVEN AND UNLABORED 0N ROOM AIR. LUNG SOUNDS CLEAR. HEART SOUND REGULAR RATE AND RYTHYM. BOWEL SOUNDS ACTIVE X 4 QUADS. EDEMA +1 TO BILATERAL LOWER EXTREMITIES. LEFT ARM IN SLING, PACE MAKER TESTED AND WORKING PROPERLY. PATIENT AWAITING DISCHARGE.
[2020-07-20 08:06] VITALS: BP 156/76
--- NOTE | 2020-07-20 11:56 | OP ---
PATIENT NAME: FAMILIA HYDE MEDICAL RECORD: [id number] :49 LOCATION:D.M2 D.5 ADMISSION DATE:07/19/20 SURGEON: BALJIT SANFORD MD DATE OF OPERATION: 07/19/2020 PREOPERATIVE DIAGNOSIS: Sick sinus syndrome with pauses. POSTOPERATIVE DIAGNOSIS: Sick sinus syndrome with pauses. PROCEDURES: 1. Left subclavian vein dual lead pacemaker placement. 2. Fluoroscopic interpretation. SURGEON: Baljit Sanford MD CO-SURGEON: Douglas Collazo MD REPORT OF OPERATION: The patient's left chest was prepped and draped in sterile fashion. A 26 mL of 1% lidocaine with epinephrine was infused into the surrounding tissues. A transverse incision was made in the left superior lateral chest and a subcutaneous pouch was made over the pectoral fascia. [place] were used to cannulate the left subclavian vein and the guidewires were advanced with ease. Fluoroscopy was used to note that the wires were in good position in the venous system. Dilator trocar devices were placed over the wires and the wires and dilators were removed. The leads were then advanced through the trocars until they rested in the superior vena cava. At this point, Dr. Collazo positioned the leads appropriately in the atrium and ventricle. Once the leads were in good position, then these were sutured into place with 2-0 Ti-Cron. The leads were affixed to the pacemaker, which was placed into the subcutaneous pouch and sutured down to the pectoral fascia with a single interrupted 2-0 Ti-Cron. We irrigated out the wound bed with antibiotic solution. The subcutaneous tissues were reapproximated with interrupted 3-0 Vicryl and the skin was closed with running subcutaneous 5-0 Monocryl. COMPLICATIONS: None. CONDITION: Stable. ANESTHESIA: Local MAC. BLOOD LOSS: Minimal. TRANSINT:[id number] Voice Confirmation ID: [id number] DOCUMENT ID: [id number] BALJIT SANFORD MD at 1156 CC: [id number] DICTATION DATE: 07/19/20 1457 GROUP SUPERVISOR YARD: 07/19/20 1601 DIS IN 07/20/20 [id number] [place] [address]
--- NOTE | 2020-07-21 20:10 | OP ---
PATIENT NAME: ANTHONY PIERRE MEDICAL RECORD: [id number] :49 LOCATION:D.M2 D.5 ADMISSION DATE:07/19/20 SURGEON: SANG LONG MD DATE OF OPERATION: 07/19/2020 PROCEDURE: Lead portion of permanent pacemaker placement. INDICATION: Sick sinus syndrome with PAF and pauses. SURGEON: Chuck Gomez MD DESCRIPTION OF PROCEDURE: After left subclavian was cannulated via modified Seldinger technique via Dr. Gomez. First under fluoroscopic guidance, we placed the RV lead in the RV apex without difficulty. After adequate R-wave and thresholds were obtained, then again on fluoroscopic guidance, I placed the right atrial lead and right atrial appendage without difficulty. After adequate fibrillatory waves were obtained, lead were attached to the appropriate poles of the generator and pocket was closed via Dr. Gomez. IMPRESSION: Successful lead portion of permanent pacemaker placement for Anthony Pierre. ESTIMATED BLOOD LOSS: Minimal. COMPLICATIONS: None. DISPOSITION: To the floor, stable. TRANSINT:[id number] Voice Confirmation ID: [id number] DOCUMENT ID: [id number] SANG LONG MD at 2009 CC: [id number] DICTATION DATE: 07/19/20 1455 CALENDER WIND UP TENDER: 07/19/20 1556 DIS IN 07/20/20 [facility] [address] [place] [address]
--- NOTE | 2020-07-21 20:10 | OP ---
PATIENT NAME: ANTHONY PIERRE MEDICAL RECORD: [id number] :49 LOCATION:D.M2 D.2114 ADMISSION DATE:07/19/20 SURGEON: SANG LONG MD DATE OF OPERATION: 07/19/2020 PROCEDURE: Lead repositioning. DESCRIPTION OF PROCEDURE: The patient was brought back to the farm laborer, after he was found to have noncapture in the recovery room. Fluoroscopy did note lead migration proximally. The pocket was easily opened by Dr. Gomez and the lead was again replaced in the RV apex with no movement with cough and deep breathing. Pocket was closed via Dr. Gomez and the patient was then placed in a titer sling. IMPRESSION: Successful lead repositioning on Anthony Pierre. COMPLICATIONS: None. DISPOSITION: To the floor, stable. TRANSINT:[id number] Voice Confirmation ID: [id number] DOCUMENT ID: [id number] SANG LONG MD at 2009 CC: [id number] DICTATION DATE: 07/19/201643 MINT MACHINE OPERATOR: 07/19/20 1712 DIS IN 07/20/20 [facility] [address] [place] [address]
== END 2020-07-20 11:19 | disposition home or self-care (01) ==
LOC: D.CATH 11:43 → D.M2 17:14 → D.CATH 17:15 → D.M2 17:15 → OBSVTIME 17:15 → D.M2 17:22
PROVIDERS: ADMIT Internal Medicine Interventional Cardiology; ATTEND Internal Medicine Interventional Cardiology
DX: I49.5 Sick sinus syndrome (principal); K21.9 Gastro-esophageal reflux disease without esophagitis; E66.9 Obesity, unspecified; E78.5 Hyperlipidemia, unspecified; I10 Essential (primary) hypertension; E11.9 Type 2 diabetes mellitus without complications; I25.10 Atherosclerotic heart disease of native coronary artery without angina pectoris; I48.92 Unspecified atrial flutter; R06.00 Dyspnea, unspecified; Z79.84 Long term (current) use of oral hypoglycemic drugs